=== PATIENT | female | born 1965 | race Caucasian/White ===

== ENCOUNTER → 2020-10-18 | Outpatient (CLI) | payer OTHER ==
--- NOTE | 2020-10-18 11:42 | 2DMMODE ---
[place] [id number] 2 D/M-MODE ECHOCARDIOGRAM Name: VIJI VÁSQUEZ Room: [facility]#: [id number] Admission: 10/18/20 Attend Phys: Dylan Tapia, Discharge: Date of : 69 Date of Service: 10/18/20 1142 Report #: [id number] THIS REPORT FOR: cc: Kendrick Anne,Kendrick Jeffries,Donavon Mayorga MD [facility] ~ APPROVED REPORT Study performed: 10/18/2020 08:56:08 EXAM: Comprehensive 2D, Doppler, and color-flow Echocardiogram Patient Location: Out-Patient BSA: 2.06 HR: 68 bpm BP: 120/78 mmHg Other Information Study Quality: Excellent Indications Chest Pain 2D Dimensions IVSd: 10.12 (7-11mm) LVOT Diam: 20.18 (18-24mm) LVDd: 46.73 mm PWd: 10.12 (7-11mm) Ascending Ao: 32.06 (22-36mm) LVDs: 27.91 (25-40mm) Aortic Root: 32.35 mm Volumes Left Atrial Volume (Systole) LA ESV Index: 14.80 mL/m2 Aortic Valve AoV Peak Benigno.: 1.23 m/s AO Peak Gr.: 6.04 mmHg LVOT Max P.84 mmHg AO Mean Gr.: 3.61 mmHg LVOT Mean P.34 mmHg LVOT Max V: 0.84 m/s AO V2 VTI: 24.14 cm LVOT Mean V: 0.53 m/s MYA (VTI): 2.46 cm2 LVOT V1 VTI: 18.60 cm Mitral Valve E/A Ratio: 0.59 [place] [id number] 2 D/M-MODE ECHOCARDIOGRAM Name: THALIAVIJI Room: [facility]#: [id number] Admission: 10/18/20 Attend Phys: Dylan Tapia, Discharge: Date of : 69 Date of Service: 10/18/20 1142 Report #: [id number] MV Decel. Time: 410.24 ms MV E Max Benigno.: 0.39 m/s MV PHT: 118.97 ms MVA (PHT): 1.85 cm2 TDI E/Lateral E': 4.33 E/Medial E': 3.55 Medial E' Benigno.: 0.11 m/s Lateral E' Benigno.: 0.09 m/s Pulmonary Valve PV Peak Benigno.: 0.77 m/s PV Peak Gr.: 2.39 mmHg Tricuspid Valve RAP Estimate: 5.00 mmHg TR Peak Gr.: 14.36 mmHg RVSP: 19.36 mmHg PA Pressure: 19.36 mmHg Left Ventricle The left ventricle is normal size. There is normal LV segmental wall motion. There is normal left ventricular wall thickness. Left ventricular systolic function is normal. The left ventricular ejection fraction is within the normal range. LVEF is 55-60%. Grade I - abnormal relaxation pattern. Right Ventricle The right ventricle is normal size. The right ventricular systolic function is normal. Atria The left atrium size is normal. The right atrium size is normal. Aortic Valve The aortic valve is normal in structure. No aortic regurgitation is present. There is no aortic valvular stenosis. Mitral Valve The mitral valve is normal in structure. There is trace mitral valve regurgitation noted. No evidence of mitral valve stenosis. Tricuspid Valve The tricuspid valve is normal in structure. Mild tricuspid regurgitation[place] [id number] 2 D/M-MODE ECHOCARDIOGRAM Name: VIJI VÁSQUEZ Room: [facility]#: [id number] Admission: 10/18/20 Attend Phys: Dylan Tapia, Discharge: Date of : 69 Date of Service: 10/18/20 1142 Report #: [id number] The pulmonary valve is normal in structure. There is no pulmonic valvular regurgitation. Great Vessels The aortic root is normal in size. IVC is normal in size and collapses >50% with inspiration. Pericardium There is no pericardial effusion. <Conclusion> Left ventricular systolic function is normal. The left ventricular ejection fraction is within the normal range. <ELECTRONICALLY SIGNED> By: Donavon Schmitt MD, [facility] 10/18/20 1142 1142 1142 Donavon Schmitt MD, FAC /INF
--- NOTE | 2020-10-18 18:02 | CARDNUC ---
[place] [address] CARDIAC NUCLEAR IMAGING REPORT Name: VIJI VÁSQUEZ Room: [facility]#: [id number] Admission: 10/18/20 Attend Phys: Dylan Tapia, Discharge: Date of : 69 Date of Service: 10/18/20 180 Report #: [id number] THIS REPORT FOR: cc: Kendrick Anne,Margot Ku MD [facility] ~ APPROVED REPORT Study performed: 10/18/2020 11:30:16 Exam: Nuclear Stress Test Indication: Chest pain, Abnormal EKG, Syncope. Patient Location: Out-Patient Stress Tech: Verenice Spencer Stress Nurse: Carolyn Garcia R.N. Ht: 5 ft 9 in Wt: 198 lbs BSA: 2.06 m2 HR: 67 bpm BP: 134/91 mmHg BMI: 29.23 Medical History Medical History: Chest pain, syncope, ABN EKG, RBBB, HLD, CAD-maternal grandmother. Medications: ATORVASTATIN Allergies: NKDA Cardiac Risk Factors: Hyperlipidemia, FHX of CAD, RBBB. Previous Cardiac Procedures: None Pretest Chest Pain Characteristics: No chest pain Exercise History: Physically active Physical Disabilities: None Meds Held (24 hrs): None Stress Test Details Stress Test: Exercise stress testing was performed using a Jayjay protocol. HR Resting HR: 67 bpm Max Heart Rate (APMHR): 167 bpm Max HR Achieved: 176 bpm Target HR (85% APMHR): 141 bpm % of APMHR: 105 Recovery HR: 101 bpm HR response to stress: Normal HR response to stress BP Resting BP: 134/[place] [address] CARDIAC NUCLEAR IMAGING REPORT Name: VIJI VÁSQUEZ Room: [facility]#: [id number] Admission: 10/18/20 Attend Phys: Dylan Tapia, Discharge: Date of : 69 Date of Service: 10/18/20 1801 Report #: [id number] Max BP: 155/75 mmHg BP response to stress: Normal blood pressure response to stress. ECG Resting ECG: Sinus Rhythm with incomplete right bundle branch block Stress ECG: Sinus Tachycardia with incomplete right bundle branch block ST Change: None Arrhythmia: None Recovery ECG: Sinus tachycardia with incomplete right bundle branch block Recovery ST Change: None Recovery Arrhythmia: None Clinical Reason for Termination: Completed protocol, target HR achieved, Maximal effort. Stress Symptoms: dyspnea, fatigue. Exercise duration: 10 min 07 sec Exercise capacity: 11.98 METs Overall Exercise Capacity for Age: Superior Nurse Comments A 55 year old female presented for a treadmill nuclear stress test. Treadmill tolerated to stage 4, target HR achieved. Recovery unremarkable. Patient was stable and stated she felt good when escorted to Nuclear Medicine for imaging. Exercise capacity - Superior. Stress ECG Conclusion Clinical: Non-ischemic ECG: Non-ischemic Normal maximal exercise EKG stress test. NM EXAM: Myocardial Perfusion REST/STRESS Imaging Protocol: Rest Tc-99m/Stress Tc-99m 1 day Resting Data Rest SPECT myocardial perfusion imaging was performed in supine position 30 minutes following the intravenous injection of 12.0 mCi of Tc-99m Sestamibi. Time of rest injection: 10:00 The images were gated to evaluate regional wall motion and calculate left [place] [address] CARDIAC NUCLEAR IMAGING REPORT Name: VIJI VÁSQUEZ Room: [facility]#: [id number] Admission: 10/18/20 Attend Phys: Dylan Tapia, Discharge: Date of : 69 Date of Service: 10/18/20 1801 Report #: [id number] Administration Route: IV Administration Site: Right Hand Exercise Stress At peak stress, the patient was injected intravenously with 35.8mCi of Tc-99m Sestamibi. Time of stress injection: 11:40 Administration Route: IV Administration Site: Right Hand Heart Rate at time of stress injection: 176 bpm. Patient continued to exercise for 1 minute(s). Gated Stress SPECT was performed 30 minutes after stress injection. The images were gated to evaluate regional wall motion and calculate left ventricular ejection fraction. Prone imaging was performed. Study Quality Study: Fair Artifact: Mild Breast artifact Lung Uptake: Normal Study Data At rest, the left ventricular ejection fraction was 66%.. Post stress, the left ventricular ejection was 68%.. SSS: For SRS: 0 SDS: For TID = 0.79. Perfusion The resting study was normal there were no defects seen. The post-rest images demonstrated a small mild apical defect and a small mild inferior defect. Prone images were obtained and demonstrate a smal very l mild apical defect. These images demonstrate a small very mild apical reversible defect. This defect could be due to differential breast attenuation artifact. Small mild area of apical ischemia cannot be excluded. Images were reviewed using Eloxx. Wall Motion Normal left ventricular wall motion. Nuclear Conclusion ECG Findings: negative for ischemia Clinical Findings: [place] [address] CARDIAC NUCLEAR IMAGING REPORT Name: VIJI VÁSQUEZ Room: [facility]#: [id number] Admission: 10/18/20 Attend Phys: Dylan Tapia, Discharge: Date of : 69 Date of Service: 10/18/20 1801 Report #: [id number] Nuclear Findings: equivocal Exercise Capacity: Superior Left Ventricular Function: normal Risk Study: low The small very mild apical reversible defect seen on these images could be due to small very mild area of apical ischemia. However differential breast attenuation artifact cannot be excluded here given the normal EKG lack of chest pain and superior exercise tolerance. <Conclusion> Clinical: Non-ischemic ECG: Non-ischemic Normal maximal exercise EKG stress test. <ELECTRONICALLY SIGNED> By: Margot Conley MD, FACC 10/18/201800 00 00 Margot Conley MD, FACC /INF
== END ==
LOC: M.CRD 08:44
PROVIDERS: ATTEND Internal Medicine Cardiovascular Disease
DX: I07.1 Rheumatic tricuspid insufficiency (principal); I45.10 Unspecified right bundle-branch block; R55 Syncope and collapse; R07.2 Precordial pain